=== PATIENT | female | born 1990 | race Caucasian/White ===

== ENCOUNTER 2018-05-28 17:33 | Inpatient (IN) | payer OTHER ==
[~2018-05-28] VITALS: Ht 160 cm; Wt 67.0 kg
[2018-05-28] MEDS ORDERED: SODIUM CHLORIDE 0.9% 1,000 ML IV ONE (17:41)
--- NOTE | 2018-05-28 17:46 | NUR ---
Dr. Flores at bedside to evaluate pt. RN at bedside to start IV. BP 127/86 in room, HR 121, pt denies any pain/cramping/vaginal bleeding. Pt went to an [employer] DEVELOPER today who stated that she should go to ER to be evaluated, pt went POV to [facility] and [facility] does not have L&D so advised her to come to this ED.
[2018-05-28] MEDS ORDERED: SODIUM CHLORIDE FLUSH 10ML SYR IVF ONE ×2 (18:00→19:00)
--- NOTE | 2018-05-28 18:05 | NUR ---
Lab at bedside.
--- NOTE | 2018-05-28 18:13 | NUR ---
IVF running. VSS. Pt aware of plan for consult with PROGRAM DIRECTOR SUBSTANCE ABUSE.
--- NOTE | 2018-05-28 18:19 | NUR ---
ARMORED VEHICLE OFFICER at bedside to evaluate and discuss surgery.
--- NOTE | 2018-05-28 18:22 | NUR ---
Report given to QUALITY ASSURANCE AUDITOR.
[2018-05-28] MEDS ORDERED: BUPIVACAINE/PF 0.25% ONE (18:23)
[2018-05-28] MEDS ORDERED: EPINEPHRINE 1 MG/ML, 1ML ONE (18:24)
[2018-05-28] MEDS ORDERED: FENTANYL PF 250 MCG/5ML ONE (18:36)
[2018-05-28 18:42] VITALS: BP 130/79
[2018-05-28 19:10] LABS: BASOPHILS # (AUTO) 0.11 x10^3/uL (0-0.1); BASOPHILS % (AUTO) 1 % (0-1); EOSINOPHILS % (AUTO) 1 % (1-7); LYMPHOCYTES # (AUTO) 2.53 x10^3/uL (1-3.4); LYMPHOCYTES % (AUTO) 20 % (22-44); MD NO; MEAN CORPUSCULAR HEMOGLOBIN 33.4 pg (27.0-34.8); MEAN CORPUSCULAR HGB CONC 34.4 g/dL (32.4-35.8); MEAN CORPUSCULAR VOLUME 97.2 fL (80-100); MEAN PLATELET VOLUME 8.5 fL (7.4-10.4); MONOCYTES # (AUTO) 1.03 x10^3/uL (0.2-0.8); MONOCYTES % (AUTO) 8 % (2-9); NEUTROPHILS # (AUTO) 8.82 x10^3/uL (1.8-6.8); NEUTROPHILS % (AUTO) 70 % (42-75); PLATELET COUNT 308 x10^3/uL (130-400); RED BLOOD COUNT 4.33 x10^6/uL (3.82-5.3); RED CELL DISTRIBUTION WIDTH 13.5 % (9.6-15.2)
[2018-05-28 19:20] LABS: ALANINE AMINOTRANSFERASE 16 U/L (12-78); ALBUMIN 4.2 g/dL (3.4-5.0); ANION GAP 8 mmol/L (5-15); CALCIUM 8.8 mg/dL (8.5-10.1); CHLORIDE 111 mmol/L (98-107); CREATININE 0.84 mg/dL (0.55-1.02)
[2018-05-28 19:23] LABS: ALKALINE PHOSPHATASE 76 U/L (45-117); BILIRUBIN,TOTAL 0.6 mg/dL (0.2-1.0); TOTAL PROTEIN 7.2 g/dL (6.4-8.2)
[2018-05-28] MEDS ORDERED: KETOROLAC 30 MG/1 ML ONE (19:24)
[2018-05-28] MEDS ORDERED: ROCURONIUM 10MG/ML,5ML ONE (19:24)
[2018-05-28] MEDS ORDERED: DEXAMETHASONE 4 MG/ML, 1ML ONE (19:32)
[2018-05-28] MEDS ORDERED: PROPOFOL 10 MG/ML, 20ML ONE (19:41)
[2018-05-28] MEDS ORDERED: CEFAZOLIN 1,000 MG ONE (19:41)
[2018-05-28] MEDS ORDERED: ONDANSETRON 2MG/ML, 2ML ONE ×2 (19:41→20:31)
[2018-05-28] MEDS ORDERED: SUCCINYLCHOLINE 20 MG/ML, 10ML ONE (19:41)
[2018-05-28] MEDS ORDERED: hydrALAzine 20 MG/ML, 1ML IV PRN (20:00)
[2018-05-28] MEDS ORDERED: ONDANSETRON 2MG/ML, 2ML IV PRN ×2 (20:00→22:00)
[2018-05-28] MEDS ORDERED: OXYcodone 5 MG/5 ML ORAL.SOL UDC PO PRN (20:00)
[2018-05-28] MEDS ORDERED: FENTANYL PF 100 MCG/2ML IV PRN (20:00)
[2018-05-28] MEDS ORDERED: PROMETHAZINE 25 MG/ML, 1ML IV PRN (20:00)
[2018-05-28] MEDS ORDERED: MEPERIDINE/PF 25MG/0.5ML IVPush PRN (20:00)
[2018-05-28] MEDS ORDERED: ACETAMINOPHEN 325 MG TABLET PO PRN (20:00)
[2018-05-28] MEDS ORDERED: LABETALOL 5MG/ML, 20ML IV PRN (20:00)
[2018-05-28] MEDS ORDERED: HYDROmorphone 1 MG/ML, 1ML ONE (20:21)
[2018-05-28] MEDS ORDERED: LORazepam 2 MG/ML, 1ML ONE (20:21)
[2018-05-28] MEDS ORDERED: LORazepam 2 MG/ML, 1ML IVPush ONE (20:30)
[2018-05-28] MEDS: HYDROmorphone 2 MG/ML, 1ML IVPush PRN ×2 (20:35→20:45)
[2018-05-28] MEDS ORDERED: OXYcodone 5 MG/5 ML ORAL.SOL UDC ONE (20:50)
[2018-05-28] MEDS ORDERED: FENTANYL PF 100 MCG/2ML ONE (21:25)
[2018-05-28] MEDS ORDERED: OXYC-302 PO (21:59)
[2018-05-28] MEDS ORDERED: KETOROLAC 30 MG/1 ML IV PRN (22:00)
[2018-05-28] MEDS ORDERED: HYDROcodone/APAP 7.5-325MG/15ML UDC PO PRN (22:00)
[2018-05-28] MEDS ORDERED: IBUP200T49 PO (22:01)
== END 2018-05-29 01:18 | disposition home or self-care (01) | DRG 819 ==
LOC: ED 18:52 → EDIP 19:02 → 4NOR 21:30
PROVIDERS: ADMIT Obstetrics & Gynecology; ATTEND Obstetrics & Gynecology
PROC: 0UT54ZZ Resection of Right Fallopian Tube, Percutaneous Endoscopic Approach (ICD-10-PCS; 2018-05-28)
PROC: 10T24ZZ Resection of Products of Conception, Ectopic, Percutaneous Endoscopic Approach (ICD-10-PCS; principal; 2018-05-28 19:30)
DX: O00.101 Right tubal pregnancy without intrauterine pregnancy (principal); D72.829 Elevated white blood cell count, unspecified; O26.51 Maternal hypotension syndrome, first trimester; Z87.891 Personal history of nicotine dependence
CPT/HCPCS: 36415; 80053; 85025; 86850; 86900; 88305; 99285; G0378; J0171; J0690; J1100; J1170; J1885; J2405; J2704; J3010; J3490; J0330; J2060; J7030